=== PATIENT | female | born 1975 | race Two or more races ===

== ENCOUNTER 2020-03-26 14:22 | Emergency (ER) | payer SELFPAY ==
[~2020-03-26] VITALS: Ht 154.9 cm; Wt 67.3 kg
[2020-03-26] MEDS ORDERED: SODIUM CHLORIDE FLUSH 10ML SYR IVF ONE (15:30)
--- NOTE | 2020-03-26 15:41 | NUR ---
[id number] SEARCHED LOBBY AND RESTROOMS. PT NOT FOUND
--- NOTE | 2020-03-26 15:44 | NUR ---
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
[2020-03-26] MEDS ORDERED: ONDANSETRON ODT 4 MG ONE (15:55)
[2020-03-26] MEDS ORDERED: MAALOX/HYOSCYAMINE/LIDOCAINE 45 ML BTL ONE (15:55)
[2020-03-26] MEDS ORDERED: FAMOTIDINE 20 MG TABLET ONE (15:55)
[2020-03-26] MEDS ORDERED: FAMOTIDINE 20 MG TABLET PO/NG ONE (16:00)
[2020-03-26] MEDS ORDERED: ONDANSETRON ODT 4 MG PO ONE (16:00)
[2020-03-26] MEDS ORDERED: MAALOX/HYOSCYAMINE/LIDOCAINE 45 ML BTL PO ONE (16:00)
[2020-03-26 16:01] VITALS: BP 144/102
[2020-03-26 16:08] LABS: BASOPHILS % (AUTO) 0 % (0-1); EOSINOPHILS % (AUTO) 0 % (1-7); LYMPHOCYTES % (AUTO) 10 % (22-44); MEAN CORPUSCULAR HEMOGLOBIN 26.2 pg (27.0-34.8); MEAN CORPUSCULAR HGB CONC 33.1 g/dL (32.4-35.8); MEAN PLATELET VOLUME 8.2 fL (7.4-10.4); MONOCYTES % (AUTO) 6 % (2-9); NEUTROPHILS % (AUTO) 84 % (42-75); PLATELET COUNT 329 x10^3/uL (130-400); RED BLOOD COUNT 4.84 x10^6/uL (3.82-5.3); RED CELL DISTRIBUTION WIDTH 15.8 % (9.6-15.2)
[2020-03-26 16:10] LABS: MD NO
--- NOTE | 2020-03-26 16:10 | NUR ---
PT BIB VIA POV. PER PT SHE HAS HAD EPIGASTRIC PAIN X1 DAY. PT DENIES N/V/D. MONITORING IN PLACE, AT BS, NADN AT THIS TIME, WCTM. PER PT NO NEEDS AT THIS TIME.
[2020-03-26 16:11] LABS: ALBUMIN 3.7 g/dL (3.4-5.0); ANION GAP 7 mmol/L (5-15); CALCIUM 8.3 mg/dL (8.5-10.1); CHLORIDE 102 mmol/L (98-107)
[2020-03-26 16:14] LABS: MICROSCOPIC AUTO
[2020-03-26 16:15] LABS: ALANINE AMINOTRANSFERASE 24 U/L (12-78); ALKALINE PHOSPHATASE 86 U/L (45-117); BILIRUBIN,TOTAL 0.6 mg/dL (0.2-1.0); CREATININE 0.66 mg/dL (0.55-1.02); TOTAL PROTEIN 7.9 g/dL (6.4-8.2)
== END 2020-03-26 17:23 | disposition home or self-care (01) ==
LOC: ED 17:00
DX: K29.00 Acute gastritis without bleeding (principal); R10.13 Epigastric pain; I10 Essential (primary) hypertension; I44.0 Atrioventricular block, first degree
CPT/HCPCS: 36415; 76700; 80053; 81001; 83690; 85025; 87086; 93005; 99285; Q0162